=== PATIENT | female | born 1990 | race Caucasian/White ===

== ENCOUNTER 2025-03-14 00:55 | Emergency (ER) | payer SELFPAY ==
[2025-03-14 00:58] VITALS: BP 121/71
[2025-03-14 01:21] LABS: Hematocrit 39.4 % (37.0-47.0); Hemoglobin 13.9 g/dL (12.0-16.0); Mean Corp Hgb Conc. 35.3 g/dL (33.0-37.0); Mean Corpuscular Volume 93.8 fL (81.0-99.0); Nucleated Red Blood Cells % 0 %; Platelet Count 284 10^3/uL (130-400); Red Cell Dist. Width 11.7 % (11.5-14.5)
[2025-03-14 01:22] LABS: Urine Character Clear (Clear)
[2025-03-14 01:42] LABS: ALT (SGPT) 13 U/L (0-35); AST (SGOT) 23 U/L (14-36); Albumin 4.7 g/dl (3.5-5.0); Alkaline Phosphatase 49 U/L (38-126); Blood Urea Nitrogen 7 mg/dl (7-17); Calcium 9.8 mg/dl (8.4-10.2); Carbon Dioxide 25 mmol/L (22-30); Chloride 105 mmol/L (98-107); Glucose 96 mg/dl (70-99); Potassium 3.6 mmol/L (3.5-5.1); Sodium 139 mmol/L (135-145); Total Protein 7.6 g/dl (6.3-8.2); eGFR > 60.00
== END 2025-03-14 03:58 | disposition left against medical advice (07) ==
LOC: EMR 00:55
PROVIDERS: EMERGENCY PHYSICIAN Student in an Organized Health Care Education/Training Program
DX: R31.9 Hematuria, unspecified (principal); R30.9 Painful micturition, unspecified; R25.2 Cramp and spasm; Z53.21 Procedure and treatment not carried out due to patient leaving prior to being seen by health care provider
CPT/HCPCS: 80053; 81003; 82550; 85025